=== PATIENT | female | born 1935 | race Caucasian/White ===

== ENCOUNTER → 2021-02-14 | Outpatient (CLI) | payer MEDICARE ==
[~2021-02-14] MED LIST: AUGMENTIN 875-1 EACH PO; CIPRO HC OTIC S10 ML MC; ECOTRIN81 MG PO; FISH OIL 500 M1 EAC2 PO; LIVALO2 MG PO; LOTENSIN20 MG PO; OS-CAL 500+D31 EACH PO; PLAVIX 75 MG TA75 MG PO; SYNTHROID25 MCG PO; TOPROL XL25 MG PO; XARELTO15 MG PO; ZOFRAN4 MG PO
== END ==
LOC: MAMO 12-28 15:00
DX: Z12.31 Encounter for screening mammogram for malignant neoplasm of breast (principal); M81.0 Age-related osteoporosis without current pathological fracture
CPT/HCPCS: 77063; 77067

== ENCOUNTER → 2021-03-27 | Outpatient (CLI) | payer MEDICARE | LOC: EXRD 15:06 | DX: M81.0 Age-related osteoporosis without current pathological fracture (principal) | CPT/HCPCS: 77080 ==

== ENCOUNTER → 2021-10-10 | Outpatient (CLI) | payer MEDICARE | LOC: MRI 10-04 14:00 | DX: Z86.73 Personal history of transient ischemic attack (TIA), and cerebral infarction without residual deficits (principal) | CPT/HCPCS: 70551 ==

== ENCOUNTER → 2021-12-17 | Outpatient (CLI) | payer MEDICARE | LOC: HEART 5 12-12 08:00 | DX: R07.9 Chest pain, unspecified (principal); I48.0 Paroxysmal atrial fibrillation | CPT/HCPCS: 78452; A9502; J2785 ==

== ENCOUNTER → 2022-02-28 | Outpatient (CLI) | payer MEDICARE | LOC: MAMO 08:31 | DX: Z12.31 Encounter for screening mammogram for malignant neoplasm of breast (principal) | CPT/HCPCS: 77063; 77067 ==